=== PATIENT | male | born 1950 | race Caucasian/White ===

== ENCOUNTER 2018-11-27 08:11 | Outpatient (RCR) | payer MEDICARE ==
[~2018-11-27 08:11] MED LIST: ASPIRIN E.C. 8181 MG PO; HCTZ 25MG TAB25 MG PO; PEPCID 20MG TAB20 MG PO; ZESTRIL20 MG PO
== END 2019-01-13 15:13 | disposition home or self-care (01) ==
LOC: MKS.ESL.PT 08:11
DX: M79.602 Pain in left arm (principal)

== ENCOUNTER → 2019-12-25 | Outpatient (CLI) | payer MEDICARE | LOC: COL.CARD 12:21 | DX: R55 Syncope and collapse (principal) ==